=== PATIENT | male | born 1995 | race Caucasian/White ===

== ENCOUNTER → 2016-07-17 | Outpatient (CLI) | payer OTHER ==
[~2016-07-17] MED LIST: AMOX875T3 PO; DIPH25CA65 PO; PRED20TA PO
== END | disposition home or self-care (01) ==
LOC: C.RDSM 14:10
PROVIDERS: ATTEND Physical Medicine & Rehabilitation Sports Medicine
DX: M25.561 Pain in right knee (principal)

== ENCOUNTER → 2016-10-03 | Day surgery (SDC) | payer OTHER ==
[2016-09-15 11:06] VITALS: Ht 175.3 cm; Wt 72.7 kg
[~2016-10-03] VITALS: Ht 175.3 cm; Wt 72.7 kg
[~2016-10-03] MED LIST changes: -AMOX875T3 PO; +ATROPINE SULFATE 0.1 MG/ML 5ML SYR IV PRN; +CEFAZOLIN 2000 MG/60 ML D5W IV SCH; +CHECK SCOPOLAMINE PATCH PLACEMENT SCH; +DEXAMETHASONE SOD INJ 4 MG/ML VIAL ONE; -DIPH25CA65 PO; +EpHEDrine SULFATE INJ 50 MG/ML AMP IV PRN; +FENTANYL CITRATE INJ 50 MCG/1 ML 2 ML VIAL IV PRN; +FENTANYL CITRATE INJ 50 MCG/1 ML 2 ML VIAL ONE; +HYDROmorphone INJ 1 MG/ML SYR IV PRN; +LACTATED RINGER'S 1000ML 1,000 ML IV SCH; +LEVOFLOXACIN 500 MG TAB PO SCH; +LIDOCAINE HCL 2% 2 ML VIAL (20MG/ML) ONE; +MIDAZOLAM HCL 1 MG/ML 2ML VIAL ONE; +ONDANSETRON INJ 2 MG/ML 2 ML VIAL IV PRN; +ONDANSETRON INJ 2 MG/ML 2 ML VIAL ONE; +OXYCODONE/ACETAMINOPHEN 5-325 TAB PO ONE; +OXYCODONE/ACETAMINOPHEN 5-325 TAB PO PRN; -PRED20TA PO; +PROPOFOL IV EMULSION 10 MG/ML 20 ML VIAL IV ONE; +ROPIVACAINE 0.5% 5 MG/ML 30 ML VIAL ONE; +SCOPOLAMINE 1.5 MG TDSY TD ONE; +SCOPOLAMINE 1.5 MG TDSY TD SCH; +SODIUM CHLORIDE 0.9% 1000ML 1,000 ML IV SCH
--- NOTE | 2016-10-03 06:41 | History & Physical Bridge Note ---
H&P Re-Evaluation Bridge Note: I have examined the patient, reviewed the History & Physical and in the interval since the performance of the History & Physical I have noted the following changes of clinical significance: No changes noted
--- NOTE | 2016-10-03 06:42 | Discharge Instructions ---
Discharge Instructions Date of Service October 03, 2016. Visit Reason for Visit: Right Knee Acl Graft Tear Discharge Discharge Diagnosis / Problem: same Discharge Goals Goal(s): Improve function, Improve disease control Medications Stopped Medications Name(s): na Restart Stopped Medication(s): use all scripts as directed Activity Recommendations Activity Limitations: as noted below Lifting Limitations: until after follow-up appointment Exercise/Sports Limitations: until after follow-up appointment May Resume Sexual Activity: when tolerated Shower/Bathe: keep incision dry Weightbearing Status: Right weightbearing (as tolerated) Anesthesia . Post Anesthesia Instructions: If you have had General Anesthesia or IV Sedation: * Do not drive today. * Resume driving when surgeon permits. * Do not make important decisions or sign legal documents today. * Call surgeon for: 1. Temperature elevations greater than 101 degrees F. 2. Uncontrollable pain. 3. Excessive bleeding. 4. Persistent nausea and vomiting. 5. Medication intolerance (nausea, vomiting or rash). * For nausea and vomiting use only clear liquids such as: tea, soda, bouillon until nausea subsides, then gradually increase diet as tolerated. * If you have any concerns or questions, call your surgeon's office. If physician is unavailable and it is an emergency, call 911 or go to the nearest emergency room. . Diet Recommendations Recommended Home Diet: resume previous diet Procedures Procedures Performed: see op note Pending Studies Studies pending at discharge: no Medical Emergencies . Who to Call and When: Medical Emergencies: If at any time you feel your situation is an emergency, please call 911 immediately. . Non-Emergent Contact Non-Emergency issues call your: Specialist Call Non-Emergent contact if: temperature is above 101.5 . . "Provider Documentation" section prepared by Stanley Moreno. .
--- NOTE | 2016-10-03 09:11 | [facility] Post Operative Brief Note ---
Immediate Operative Summary Operative Date October 03, 2016. Pre-Operative Diagnosis Right Knee Anterior Cruciate Ligament Graft Tear Post-Operative Diagnosis Same Procedure(s) Performed Right Knee Arthroscopic Revision Anterior Cruciate Ligament Reconstruction With Patellar Tendon Autograft Surgeon Dr. Gerard Sex Therapist Surgeon(s) Sophia Ordaz, Fellow; Cristian Luo PA-C Estimated Blood Loss 25 ML Findings acl tear Fluids (cc crystalloids) 1300cc Specimens None Drains none Anesthesia LMA/block Complication(s) None Disposition Recovery Room / PACU
--- NOTE | 2016-10-03 10:05 | OPERATIVE REPORT ---
DATE OF OPERATION: 10/03/2016 SURGEON: Dr. Moreno. CARBIDE TOOL MAKER: Dr. Monroe. SECOND CARBIDE TOOL MAKER: Issac Luo PA-C PREOPERATIVE DIAGNOSIS: ACL graft failure, right knee. POSTOPERATIVE DIAGNOSIS: Same. OPERATION PERFORMED: Revision ACL reconstruction with central one-third patellar tendon autograft. PERIOPERATIVE SITUATION: Medically cleared male with intractable instability to his knee, had a previous hamstring reconstruction done elsewhere that has failed. At this point in time will proceed with surgical reconstruction. Wants to use autograft central 1/3 patellar tendon. OPERATIONS PERFORMED. 1. Exam under anesthesia. 2. Diagnostic arthroscopy. 3. Removal of the Endobutton tibia. 4. Endoscopic revision ACL reconstruction using central 1/3 patellar tendon autograft. PROCEDURE: The patient was properly identified, site verified, consent verified, 2 grams of Ancef confirmed as being given. The right lower extremity was examined revealing positive Lashay, pivot shift, anterior drawer test. The collateral ligaments were stable. The knee was then prepped and draped in usual routine fashion. Tourniquet inflated to 275 mmHg after exsanguination of limb with a rubber Esmarch bandage for a total of roughly 70 minutes. A scope was then applied inframedial and inferolateral portals. Inspection of the joint revealed no major articular disease of all 3 compartments and the meniscus were intact. The ACL graft was completely gone, the PCL was normal. Notchplasty was opened up. The old incision was then opened distally and the tibial guide placed. The Endobutton or cortical suspension device was removed. A tunnel then made and enlarged from 8 mm to 10 mm. All bone debris removed. Transtibially with good positioning of the tibial tunnel the 7 mm offset guide was placed in excellent position. A guidepin passed and then the tunnel opened up to 10 mm and about 25 mm in depth. All bone debris removed. The central 1/3 of the patellar tendon was then harvested by extending the old incision proximally; central 1/3 was harvested. Bone blocks being 20 x 10 x 5 and 30 x 10 x 5 off the patella and tibia respectively. They were tagged with a TightRope proximally and #5 Ethibonds distally. The graft was then passed using a shuttle technique and secured on the femur with a cortical suspension device. TightRope with excellent fixation on the tibia after a trough was cut with two 8 mm bone bhavani. Excellent fixation obtained. The knee was then inspected revealing full hyperextension, full flexion, stable Lashay, pivot shift, anterior drawer test. The knee was then irrigated. All instruments and fluid removed. The peritenon closed with 2-0 Vicryl. Bone trimming was used to graft the patellar harvest site, 0 Vicryl for the fascial layer, 2-0 plain for the subcutaneous layer and stainless steel clips for skin as this was revision of an incision. The portals closed with the same bhavani. Wound dressing applied and patient transferred to recovery room in satisfactory condition having tolerated the procedure well. ESTIMATED BLOOD LOSS: 25 mL CRYSTALLOID: 1300 mL. DVT prophylaxis with aspirin. Weightbearing to tolerance. Range of motion tolerance. I attest to the content of the Intraoperative Record and any orders documented therein. Any exceptio ns are noted below.
--- NOTE | 2016-10-03 10:25 | Anesthesia Progress Nt - [facility] ---
Anesthesia Post Op Note Date & Time October 03, 2016 at 10:24 Vital Signs Pain Intensity: 2.0 Vital Signs Past 12 Hours Date Time Temp Pulse Resp B/P Pulse Ox O2 Delivery O2 Flow Rate FiO2 10/03/16 09:56 63 7 10/03/16 09:56 61 7 100 10/03/16 09:55 135/73 10/03/16 09:53 36.8 64 12 135/73 100 Room Air 10/03/16 09:51 73 19 10/03/16 09:51 73 19 100 10/03/16 09:50 118/80 10/03/16 09:46 68 15 10/03/16 09:46 63 15 100 10/03/16 09:45 135/74 10/03/16 09:41 65 15 10/03/16 09:41 69 15 100 10/03/16 09:40 132/73 10/03/16 09:36 74 15 10/03/16 09:36 71 15 99 10/03/16 09:35 130/79 10/03/16 09:31 82 16 10/03/16 09:31 81 16 100 10/03/16 09:30 146/65 10/03/16 09:26 87 18 100 10/03/16 09:26 86 18 10/03/16 09:25 131/57 10/03/16 09:21 67 0 100 10/03/16 09:21 66 0 10/03/16 09:20 133/61 10/03/16 09:16 80 15 100 10/03/16 09:16 79 15 10/03/16 09:15 36.5 82 16 139/61 100 Mask 6 10/03/16 09:15 127/62 10/03/16 09:14 139/61 10/03/16 07:36 0 10/03/16 07:31 76 10/03/16 07:31 75 15 100 10/03/16 07:30 79 35 135/75 100 10/03/16 07:30 77 10/03/16 07:26 134/67 10/03/16 07:26 75 20 134/67 100 Mask 4 10/03/16 07:25 64 15 10/03/16 06:29 36.5 59 16 154/83 98 Room Air Notes Mental Status: alert / awake / arousable, participated in evaluation Pt Amnestic to Procedure: Yes Nausea / Vomiting: adequately controlled Pain: adequately controlled Airway Patency, RR, SpO2: stable & adequate BP & HR: stable & adequate Hydration State: stable & adequate Anesthetic Complications: no major complications apparent
[2016-10-03 10:29] VITALS: BP 142/79; PULSE 51; TEMP 36.8; O2SAT 99
--- NOTE | 2016-10-03 12:16 | OPERATIVE REPORT ---
PREOPERATIVE DIAGNOSIS: Right knee anterior cruciate ligament graft tear. POSTOPERATIVE DIAGNOSIS: Right knee same. PROCEDURE: Right knee revision ACL reconstruction using patellar tendon autograft. SURGEON: Dr. Moreno. LIME SLUDGE MIXER: Dr. Monroe. SECOND FINANCIAL LEGAL ASSISTANT: Issac Luo PA-C. HISTORY OF PRESENT ILLNESS: This 21-year-old white male presented to the office with complaints of right knee instability after being injured while playing soccer. He previously had a right knee ACL reconstruction using hamstring autograft. He elected to proceed with surgical intervention after being educated about potential risks and outcomes. Preoperative x-rays and MRI were obtained. OPERATION: The patient was administered regional block and then taken to the operating room where he was given general anesthetic. He was prepped and draped in the usual sterile fashion. Please see Dr. Moreno's operative report for specifics of the procedure. I was present for the entire case from initial patient positioning through final wound closure. Assistance was provided in patient positioning, arthroscopy, graft harvest, graft placement, hardware placement, and final wound closure. The patient was taken to the recovery room in satisfactory condition.
== END | disposition home or self-care (01) ==
LOC: X.SURG 06:13
PROVIDERS: ATTEND Physical Medicine & Rehabilitation Sports Medicine
DX: T84.89XA Other specified complication of internal orthopedic prosthetic devices, implants and grafts, initial encounter (principal)

== ENCOUNTER → 2016-10-30 | Outpatient (CLI) | payer OTHER | END | disposition home or self-care (01) | LOC: C.RDSM 11:52 | PROVIDERS: ATTEND Physical Medicine & Rehabilitation Sports Medicine | DX: Z98.890 Other specified postprocedural states (principal) ==